=== PATIENT | female | born 1960 | race Caucasian/White ===

== ENCOUNTER → 2016-11-17 09:15 | Outpatient (CLI) | payer OTHER | END | disposition home or self-care (01) | LOC: D.RT 09:15 | DX: R06.02 Shortness of breath (principal) ==

== ENCOUNTER → 2016-12-15 07:16 | Outpatient (CLI) | payer OTHER ==
--- NOTE | ~2016-12-15 | HEMODYNAMI ---
PATIENT:AELKSANDER NÚÑEZ MEDICAL RECORD: [id number] : 58 LOCATION:[facility] ADMISSION DATE: 12/15/16 Generatedon:12/15/20169:44 Patient name: ALEKSANDER NÚÑEZ Patient #: [id number] SSN: [id number] : 1960 Date of study: 12/15/2016 Page: Of Hemodynamic Procedure Report Patient Data Patient Demographics Procedure consent was obtained First Name: ALEKSNADER Gender: Female Last Name: WILTON : 1960 Middle Initial: KINGA Age: 56 year(s) Patient #: [id number] Race: Unknown SSN: [id number] Additional ID: [id number] Contact details Address: [address] [place] [address] State: [place] City: [facility] [place] Zip code: [address] Admission Admission Data Admission Date: 12/15/2016 Admission Time: 7:16 Arrival Date: 12/15/2016 Arrival Time: 9:00 Admit Source: Other Insurance Payor: Private health insurance Height (in.): 63 BSA: 1.5 (m2) Height (cm.): 160.02 BMI: 19.49 (kg/m2) Weight (lbs.): 110 Weight (kg.): 49.9 Lab Results Lab Result Date: 12/15/2016 Lab Result Time: 0:00 Biochemistry Name Units Result Min Max BUN mg/dl 8 --(*---)-- 7 18 Creatinine mg/dl 0.7 --(*---)-- 0.6 1.3 CBC Name Units Result Min Max Hemoglobin g/dl 14.9 --(-*--)-- 13.5 17.5 Procedure Procedure Types Cath Procedure Diagnostic Procedure LHC LHC w/Coronaries Miscellaneous Procedures Moderate Sedation up to 30 minutes Procedure Description Procedure Date Procedure Date: 12/15/2016 Procedure Start Time: 9:28 Procedure End Time: 9:41 Procedure Staff Name Function Tanmay Norred MD Performing Physician Conchita Brandt RT Scrub Ira Dawson RT Monitor Gurpreet Wang RN Nurse Procedure Data Cath Procedure Fluoroscopy Diagnostic fluoroscopy Total fluoroscopy Time: 1.4 time: 1.4 min min Diagnostic fluoroscopy Total fluoroscopy dose: 141 dose: 141 mGy mGy Contrast Material Contrast Material Type Amount (ml) Isovue 300 36 Entry Location Entry Primary Successful Side Size Upsize Upsize Entry Closure Succes sful Closure Location (Fr) 1 (Fr) 2 (Fr) Remarks Device Remarks Femoral Right 5 Fr Exoseal artery Estimated blood loss: 5 ml Diagnostic catheters Device Type Used For End Catheter Placement Cordis 5Fr JL 4.0 Left Coronary Catheter (MP) Angiography Cordis 5Fr 3DRC Catheter Right Coronary (MP) Angiography Cordis 5Fr Pigtail LV Angiography Catheter (MP) Procedure Complications No complications Procedure Medications Medication Administration Route Dosage Oxygen NC 2 l/min Heparin Flush Bag added to field 2 bags (1000units/500ml NS) 0.9% NaCl I.V. 100 ml/hr Fentanyl I.V. 50 mcg Versed I.V. 1 mg Hemodynamics Rest BSA: 1.5 (m2) HGB: 14.9 (g/dl) O2 Consumption: Estimated: 140.31 (ml/min) O2 Con sumption indexed: Estimated:93.54 (ml/min/m) Heart Rate: 64 (bpm) Pressure Samples Time Site Value (mmHg) Purpose Heart Use Rate(bpm) 9:36 LV 92/-10,13 EDP 71 Gradients Valve Time Site Site Mean SEP/DFP Peak To Heart Use 1 2 (mmHg) (sec/min) Peak Rate (mmHg) (bpm) Aortic 9:37 LV AO 75 Snapshots Pre Cath Intra NCS Post Cath Vital Signs Time Heart Resp SPO2 NIBP Rhythm Pain Sedation Rate (ipm) (%) (mmHg) Status Level (bpm) 9:11:21 63 18 100 94/58(72) NSR 0 (11) 10(A) , No pain 9:15:23 64 17 100 99/57(68) NSR 0 (11) 10(A) , No pain 9:19:26 71 19 98 86/54(72) NSR 0 (11) 10(A) , No pain 9:24:25 69 18 98 85/53(66) NSR 0 (11) 10(A) , No pain 9:28:23 77 17 98 93/60(73) NSR 0 (11) 9(A) , No pain 9:32:47 74 17 98 93/54(76) NSR 0 (11) 9(A) , No pain 9:36:47 80 17 98 90/57(70) NSR 0 (11) 9(A) , No pain 9:42:58 67 17 100 101/57(82) NSR 0 (11) 10(A) , No pain Medications Time Medication Route Dose Verified Delivered Reason Notes Effect iveness by by 9:09:58 Oxygen NC 2 Tanmay Gurpreet Per l/min Emeka Wang RN physician 9:10:08 Heparin Flush added 2 Tanmay Gurpreet used for Bag to bags Emeka Wang RN procedure (1000units/500ml field NS) 9:10:19 0.9% NaCl I.V. 100 Tanmay Gurpreet Per ml/hr Emeka Wang RN physician 9:26:19 Fentanyl I.V. 50 Tanmay Gurpreet for mcg Emeka Wang RN sedation 9:26:25 Versed I.V. 1 mg Tanmay Gurpreet for Emeka Wang RN sedation Procedure Log Time Note 8:02:32 Admit Source: Other 8:02:38 Arrival Date: 12/15/2016 9:00:00 AM 8:02:49 Insurance Payor : Private health insurance 8:03:00 Patient Height : 63 inches 8:03:11 Patient Weight : 110 lbs 8:04:08 Diagnostic Cath Status : Elective 8:05:07 Gurpreet Wang RN sent for patient. Start room use. 8:05:08 Time tracking: Regular hours 8:05:14 Plan of Care:Hemodynamics will remain stable., Cardiac rhythm will remain stable., Comfort level will be maintained., Respiratory function will remain adequate., Patient/ family verbilizes understanding of procedure., Procedure tolerated without complication., Recovers from procedure without complications.. 9:02:35 Patient received from Pre/Post Procedure Room to [facility] 2 Alert and oriented. Tansferred to table in Supine position. 9:02:37 Warm blankets applied, and zackary hugger turned on for patient comfort. 9:02:37 Correct patient and procedure confirmed by team. 9:02:38 Signed procedure consent form obtained from patient. 9:02:55 ECG and BP/O2 sat monitors applied to patient. 9:09:58 Oxygen 2 l/min NC was administered by Gurpreet Wang RN; Per physician; 9:10:08 Heparin Flush Bag (1000units/500ml NS) 2 bags added to field was administered by Gurpreet Wang RN; used for procedure; 9:10:11 Vital chart was started 9:10:19 0.9% NaCl 100 ml/hr I.V. was administered by Gurpreet Wang RN; Per physician; 9:10:57 Baseline sample Acquired. 9:11:30 Rhythm: sinus rhythm 9:11:31 Full Disclosure recording started 9:11:44 H&P Date Dictated: 12/08/2016 Within 30 days and on chart., H&P Addendum completed by physician on day of procedure. (MUST COMPLETE FOR ALL OUTPATIENTS). 9:11:45 Pre-procedure instructions explained to patient. 9:11:45 Pre-op teaching completed and patient verbalized understanding. 9:11:47 Family in waiting room. 9:11:48 Patient NPO since Midnight. 9:11:55 Is the patient allergic to Iodine/contrast media? No. 9:11:56 Was the patient premedicated? No 9:14:32 Is patient on blood thinner?Yes 9:14:36 ACC The patient was administered the following blood thiners within the last 24 hours: ACCPlavix 9:14:45 Patient diabetic? No. 9:14:48 Previous problem with sedation/anesthesia? No ? 9:14:50 Snore? No 9:14:51 Sleep apnea? No 9:14:52 Deviated septum? No 9:14:53 Opens mouth fully? Yes 9:14:55 Sticks out tongue? Yes 9:15:01 Airway obstruction? Yes copd 9:15:07 Dentures? Yes out 9:15:30 Pre procedure: right dorsailis pedis pulse 1+ Palpable, but thready & weak; easily obliterated 9:15:33 Pre procedure: left dorsailis pedis pulse 1+ Palpable, but thready & weak; easily obliterated 9:15:36 Patient pain scale 0/10 ?. 9:15:43 IV patent on arrival in left forearm with 0.9% NaCl at O. 9:17:08 Lab Result : BUN 8 mg/dl 9:17:08 Lab Result : Creatinine 0.7 mg/dl 9:17:08 Lab Result : Hemoglobin 14.9 g/dl 9:17:11 Lab results completed and on chart. 9:17:15 Right groin area was prepped with chlora-prep and draped in sterile fashion 9:17:15 Alarms reviewed by R. N. 9:17:16 Sharps counted by scrub and verified by R.N. 9:17:17 Physician arrived 9::17 --------ALL STOP TIME OUT------ 9:17:18 Final Timeout: patient, procedure, and site verified with staff and physician. All members of the team are in agreement. 9:17:19 Right groin site verified by team. 9:17:23 Physical assessment completed. ASA score P 2 - A patient with mild systemic disease as per Tanmay Hendrickson MD. 9:17:27 Sedation plan: IV Moderate Sedation Versed, Fentanyl 9:20:45 Use device set Femoral Dx 9:20:46 Acist Syringe opened to sterile field. 9:20:47 Bag Decanter opened to sterile field. 9:20:47 Medline Cath Pack opened to sterile field. 9:20:48 Terumo 5Fr Brandywine Sheath opened to sterile field. 9:20:49 St Joe 260cm J .035 wire opened to sterile field. 9:20:51 Acist Hand Control opened to sterile field. 9:20:51 Acist Manifold opened to sterile field. 9:20:51 Diagnostic Infinity 5Fr Multipack catheter opened to sterile field. 9:20:52 Tegaderm 4 x 4 opened to sterile field. 9:21:00 Cook 4Fr Micropuncture Set ([id number]) opened to sterile field. 9:21:05 Zero performed for pressure channel P1 9:26:19 Fentanyl 50 mcg I.V. was administered by Gurpreet Wang RN; for sedation; 9:26:25 Versed 1 mg I.V. was administered by Gurpreet Wang RN; for sedation; 9:28:16 Procedure started. 9:28:52 Local anesthetic to right femoral artery with Lidocaine 2% by Tanmay Hendrickson MD.INITIAL ACCESS ONLY 9:28:54 Access obtained with 4Fr micropunture. 9:29:06 A 5 Fr sheath was inserted into the Right Femoral artery 9:30:46 A Cordis 5Fr JL 4.0 Catheter (MP) was advanced over the wire and used for Left Coronary Angiography. 9:31:48 LCA angiography performed. 9:31:50 Injector settings: Ml/sec: 3, Volume: 6, 9:32:58 Catheter removed. 9:33:03 A Cordis 5Fr 3DRC Catheter (MP) was advanced over the wire and used for Right Coronary Angiography. 9:34:15 RCA angiography performed. 9:34:18 Injector settings: Ml/sec: 3, Volume: 6, 9:34:42 Catheter removed. 9:34:48 A Cordis 5Fr Pigtail Catheter (MP) was advanced over the wire and used for LV Angiography. 9:36:32 LV hemodynamics recorded. 9:36:33 LV gram done using CANCINO 9:36:35 Injector settings: Ml/sec: 5, Volume: 15, 9:37:10 EF : 65 % 9:37:15 Catheter removed. 9:37:22 Cordis 5Fr Exoseal opened to sterile field. 9:38:59 Sheath removed intact; hemostasis achieved with Exoseal to the Right Femoral artery. 9:39:01 Procedure ended.(Physican Out) 9:39:12 Fluoroscopy time 01.40 minutes. 9:39:18 Fluoroscopy dose: 141 mGy 9:39:18 Flurop Dose total: 141 9:39:22 Contrast amount:Isovue 300 36ml. 9:39:23 Sharps counted by scrub and verified by R.N. 9:39:25 Insertion/operative site no bleeding no hematoma. 9:39:28 Post-op/insertion site Right Femoral artery dressed using a 4 x 4 and Tegaderm. 9:39:30 Post right femoral artery:stable 9:39:32 Post Procedure Pulses reassessed and unchanged 9:39:35 Post procedure rhythm: unchanged. 9:39:38 Estimated blood loss: 5 ml 9:39:39 Post procedure instruction explained to patient.Patient verbalizes understanding. 9:39:40 Patient needs reinforcement of post procedure teaching. 9:39:51 Procedure type changed to Cath procedure, Diagnostic procedure, LHC, LHC w/Coronaries, Miscellaneous Procedures, Moderate Sedation up to 30 minutes 9:39:53 Procedure and supply charges have been captured, reviewed, submitted and are correct. 9:39:57 Procedure Complication : No complications 9:39:59 Vital chart was stopped 9:40:11 See physician's report for complete and final results. 9:40:59 Report given to Pre/Post Procedure Room. 9:41:04 Patient transfered to Pre/Post Procedure Room with Stretcher. 9:41:08 Procedure ended. 9:41:08 Full Disclosure recording stopped 9:41:13 End room use (Document Last) Device Usage Item Name Manufacture Quantity Catalog Hospital Part Current Minimal Lot# / Number Charge Number Stock Stock Serial# Code Acist Syringe Acist 1 [id number] 237330 194274 020020 20 [employer] Bag Decanter Microtek 1 2002S 416704 61257 538183 5 [employer]. Medline Cath Cardinal 1 [id number] 052112 59548 542384 5 Pack Health Terumo 5Fr Terumo 1 [id number] 008287 667423 570035 [address] [facility] 1 772202 436334 520234 895443 30 J .035 wire Acist Hand Acist 1 68591 403009 442245 832383 5 Control [employer] Inc Acist Acist 1 08111 156474 238065 694485 5 Manifold [employer] Inc Diagnostic Cardinal 1 [id number] 136249 62860 908770 30 Infinity 5Fr Health Multipack catheter Tegaderm 4 x 3M 1 [id number] 213193 647901 821714 5 4 Cook 4Fr Cook Medical 1 [id number] 747529 724404 102594 5 Micropuncture Set ([id number]) Cordis 5Fr JL Cardinal 1 628959 5 4.0 Catheter Health (MP) Cordis 5Fr Cardinal 1 [id number] 5 3DRC Catheter Health (MP) Cordis 5Fr Cardinal 1 278130 5 Pigtail Health Catheter (MP) Cordis 5Fr Cardinal 1 EX500 584191 895843 861038 10 Quincee Signature Audit [place] Stage Time Signature Unsigned Intra-Procedure 12/15/2016 Ira Dawson 9:44:50 AM RT(R) Signatures Monitor : Ira Dawson RT Signature : Date : Time : [address] [address] [place] [address]
[~2016-12-15 07:16] MED LIST: CELEXA20 MG PO; KEPPRA500 MG PO; PRINIVIL10 MG PO
[2016-12-15 07:27] VITALS: BP 112/63; BMI 19.5
[2016-12-15 07:38] LABS: BASOPHILS 0.7 % (0-2); EOSINOPHILS 8.2 % (0-7); HEMATOCRIT 42.8 % (36.0-48.0); HEMOGLOBIN 14.9 g/dL (12-16); IMMATURE GRANULOCYTES 0.1 % (0-5); LYMPHOCYTES 36.2 % (15-50); MCH 31.6 pg (26.0-34.0); MCHC 34.8 g/dL (31.0-37.0); MCV 90.7 fL (80.0-100.0); MEAN PLATELET VOLUME 10.1 fL (7.4-10.4); MONOCYTES 7.6 % (2-11); NEUTROPHILS 47.2 % (40-80); PLATELET COUNT 293 10x3/uL (130-400); RBC 4.72 10x6/uL (4.00-5.40); RDW 13.6 % (11.5-14.5); WBC 7.5 10x3/uL (4.8-10.8)
[2016-12-15 08:00] LABS: CALC OSMOLALITY 263 mosm/kg (275-300); CALCIUM 9.4 mg/dL (8.5-10.1); CARBON DIOXIDE 29.1 mmol/L (21.0-32.0); CHLORIDE - SERUM 98 mmol/L (98-107); CREATININE - SERUM 0.7 mg/dL (0.6-1.3); GLUCOSE 91 mg/dL (74-106); POTASSIUM - SERUM 4.5 mmol/L (3.5-5.1); SODIUM 133 mmol/L (136-145); UREA NITROGEN 8 mg/dL (7-18); eGFR NON AFRICAN AMERICAN > 90 mL/min (90-120)
--- NOTE | 2016-12-15 09:57 | NUR ---
RECIEVED TO ROOM VIA STRETCHER FROM REPRODUCER WITH REPORTS OF A CLEAN CATH NO INTERVENTION AT THIS TIME. 5 FR EXOSEAL R/GROIN CDI NO BLEEDING NO HEMATOMA NOTED. INSTRUCTED PATIENT TO KEEP HEAD FLAT ON PILLOW WITH RLE STRAIGHT.
--- NOTE | 2016-12-15 10:38 | NUR ---
ALERT AND ORIENTED TALKING TO DAUGHTER AT BEDSIDE. PATIENT DENIED PAIN OR NEEDS. 5 FR EXOSEAL R/GROIN CDI NO BLEEDING NO HEMATOMA NOTED VSS
--- NOTE | 2016-12-15 10:53 | NUR ---
DENIED PAIN OR NEEDS AT THIS TIME FAMILY PRESENT AT SIDE. R/GROIN REMAINS CDI NO BLEEDING NO HEMATOMA NOTED PULSES PRESENT
--- NOTE | 2016-12-15 11:22 | NUR ---
REPOSITIONED TO SITTING WITH HOB UP 30 DEGREES R/GROIN REMAINS CDI NO BLEEDING NO HEMATOMA NOTED. VERBAL AND WRITTEN DISCHARGE GONE OVER WITH PATIENT AND FAMILY
--- NOTE | 2016-12-15 11:58 | NUR ---
PIV REMOVED WITH DRESSING APPLIED R/GROIN REMAINS STABLE WITH CHEST PAIN DENIED. PATIENT LEFT VIA WC TO PARKING FOR TRANSPORT HOME NO DISTRESS
== END | disposition home or self-care (01) ==
LOC: D.CATH 07:16
PROVIDERS: Internal Medicine Cardiovascular Disease
DX: I25.10 Atherosclerotic heart disease of native coronary artery without angina pectoris (principal); Z01.812 Encounter for preprocedural laboratory examination

== ENCOUNTER → 2017-02-01 16:49 | Outpatient (CLI) | payer OTHER ==
[2016-12-15 07:27] VITALS: BMI 19.5
[2017-02-01 19:03] LABS: ALT (SGPT) 27 U/L (10-68); CALC OSMOLALITY 270 mosm/kg (275-300); CALCIUM 9.2 mg/dL (8.5-10.1); CARBON DIOXIDE 28.9 mmol/L (21.0-32.0); CHLORIDE - SERUM 98 mmol/L (98-107); CHOL - HDL RATIO 2.1 ratio (2.3-4.1); CHOLESTEROL, TOTAL 253 mg/dL (0-200); CREATININE - SERUM 0.6 mg/dL (0.6-1.3); GLUCOSE 99 mg/dL (74-106); HDL CHOLESTEROL 119 mg/dL (32-96); LDL CHOLESTEROL 124 mg/dL (0-100); POTASSIUM - SERUM 5.1 mmol/L (3.5-5.1); SODIUM 135 mmol/L (136-145); TRIGLYCERIDE 50 mg/dL (30-200); UREA NITROGEN 14 mg/dL (7-18); eGFR NON AFRICAN AMERICAN > 90 mL/min (90-120)
== END | disposition home or self-care (01) ==
LOC: D.LABREF 16:49
PROVIDERS: Family Medicine
DX: I25.10 Atherosclerotic heart disease of native coronary artery without angina pectoris (principal)

== ENCOUNTER 2018-04-06 12:17 | Emergency (ER) | payer OTHER ==
[~2018-04-06] VITALS: Ht 160 cm; Wt 52.3 kg
[2018-04-06 12:25] VITALS: Ht 160 cm; Wt 52.3 kg
[2018-04-06] MEDS ORDERED: VOLTAREN75 MG PO (14:21)
[2018-04-06] MEDS ORDERED: SKELAXIN800 MG PO (14:21)
[2018-04-06 14:41] VITALS: BP 116/69
== END 2018-04-06 14:41 | disposition home or self-care (01) ==
LOC: D.ER 12:17
DX: S46.911A Strain of unspecified muscle, fascia and tendon at shoulder and upper arm level, right arm, initial encounter (principal); V43.52XA Car driver injured in collision with other type car in traffic accident, initial encounter; Y93.89 Activity, other specified; Y92.410 Unspecified street and highway as the place of occurrence of the external cause

== ENCOUNTER → 2018-08-22 07:38 | Outpatient (CLI) | payer OTHER ==
[2018-04-06 12:25] VITALS: BMI 20.4
[~2018-08-22 07:38] MED LIST changes: +SKELAXIN800 MG PO; +VOLTAREN75 MG PO
== END | disposition home or self-care (01) ==
LOC: D.CT 07:38
PROVIDERS: ATTEND Surgery
DX: R10.9 Unspecified abdominal pain (principal)

== ENCOUNTER 2020-05-04 14:00 | Outpatient (CLI) | payer OTHER ==
[2018-04-06 12:25] VITALS: BMI 20.4
== END 2020-05-04 23:59 | disposition home or self-care (01) ==
LOC: D.MAMMO 14:00
PROVIDERS: ATTEND Family Medicine
DX: Z12.31 Encounter for screening mammogram for malignant neoplasm of breast (principal)